=== PATIENT | female | born 1940 | race Caucasian/White ===

== ENCOUNTER → 2017-05-11 | Day surgery (SDC) | payer OTHER, MEDICAID ==
[~2017-05-11] MED LIST: ADVAI100I PO; BUPIVACAINE/EPINEPHRINE 0.25% 50 ML VIAL ONE; LACTATED RINGER'S 1000 ML INJ 1,000 ML ONE; MIDAZOLAM HCL 2 MG/2 ML VIAL ONE; PROPOFOL 500 MG/50 ML BTL IV ONE; RIVA15 PO; SODIUM CHLOR 0.9% 250 ML BAG IV ONE; VANCOMYCIN HCL 1000 MG VIAL ONE
--- NOTE | 2017-05-11 16:13 | TN ---
cc: MADDIE DAVIS M.D. DATE OF SURGERY 05/11/2017 PREOPERATIVE DIAGNOSES 1. Mammographic abnormality left breast. 2. History of a left breast cancer. POSTOPERATIVE DIAGNOSES 1. Mammographic abnormality left breast. 2. History of a left breast cancer. PROCEDURE PERFORMED Needle-localized lumpectomy. SURGEON Maddie Dvais MD ANESTHESIA TIVA with local COMPLICATIONS None INDICATION FOR PROCEDURE Ms. Bolivar is a pleasant 77-year-old female who was noted have a mammographic abnormality in her left breast. This was initially seen last summer. She underwent ultrasound which confirmed a mass. She underwent percutaneous biopsy and this was found be benign. On her repeat imaging recently it was noted the mass had increased in size and therefore there was concern about whether not the mass had been biopsied the first time. Because of its enlarging nature, radiologist requested it be excised for confirmation of benign diagnosis. The patient was seen and evaluated in the office. Risks and benefits of needle-localized lumpectomy was discussed with her and she was agreeable. DETAILS OF PROCEDURE The patient was identified, brought to the operating room and placed supine on the operating table. After adequate IV sedation was achieved the left breast was prepped and draped in standard surgical fashion. The patient had a wire localization coming in from the upper outer quadrant of the breast going to the middle central upper breast where she had previously had a lumpectomy. 0.25% Marcaine was injected. Previous lumpectomy incision in the upper central breast was then incised. Subcutaneous skin flaps were then raised in all directions. The wire was identified in the breast. The wire was then followed down to its base. At the base of the wire all breast tissue around it was excised with a generous margin in all directions. Wire was then transected and the specimen was brought out. Short stitch placed superior, long stitch was placed lateral. Specimen sent to radiology. Dr. Wiseman confirmed the mass and clip to be present. Wound was copiously irrigated with normal saline solution. The wound was then closed two layers using 3-0 Vicryl, 4-0 Vicryl. Sterile dressings were applied. The patient was awakened, brought to recovery in stable condition. MD CIERRA Stoll/LISHA /3:13 PM /3:58 PM
== END | disposition home or self-care (01) ==
LOC: ESDC 11:25
PROVIDERS: ATTEND Surgery Trauma Surgery
DX: N64.1 Fat necrosis of breast (principal); Z85.3 Personal history of malignant neoplasm of breast
CPT/HCPCS: 00400; 19125; 88305; J2250; J3010; J3370; J7050; J7120; 88307